=== PATIENT | male | born 1950 | race Caucasian/White ===

== ENCOUNTER → 2017-02-26 | Outpatient (CLI) | payer OTHER ==
[~2017-02-26] MED LIST: ALTACE2.5 M1 PO; ASPRIN; ATORVASTATIN; BUDEPRION XL300 MG PO; CARDI-OMEGA1000 MG PO; CLONAZEPAM1 MG PO; DIABETA2.5 MG PO; EFFEXOR 75M75 MG/TAB PO; GLUCOPHAGE500 MG/TAB PO; GLUCOTROL10 MG PO; ISOSORBIDE30 MG PO; LEVEMIR FLEXPEN SQ; NASACORT55 MCG/ACT NS; NITROSTAT0.4 MG/TAB SL; NORVASC2.5 MG PO; PLAVIX 75MG TAB75 MG PO; PLETAL50 MG PO; PRILOTC; PROSCAR; TOPROL XL50 MG PO; TRILIPIX 135MG PO; VICTOZA6 MG/ML SQ; VIT E
== END ==
LOC: COL.RAD 09:35
DX: G31.9 Degenerative disease of nervous system, unspecified (principal)

== ENCOUNTER 2017-03-21 15:47 | Emergency (ER) | payer MEDICARE ==
[~2017-03-21] VITALS: Ht 180.3 cm; Wt 94.5 kg
[2017-03-21 16:37] VITALS: BP 123/63; PULSE 82
== END 2017-03-21 16:46 | disposition home or self-care (01) ==
LOC: COL.ER 15:47
DX: S61.412A Laceration without foreign body of left hand, initial encounter (principal); I25.10 Atherosclerotic heart disease of native coronary artery without angina pectoris; E11.9 Type 2 diabetes mellitus without complications; Z79.82 Long term (current) use of aspirin; Z79.4 Long term (current) use of insulin; W26.8XXA Contact with other sharp object(s), not elsewhere classified, initial encounter; Y92.009 Unspecified place in unspecified non-institutional (private) residence as the place of occurrence of the external cause

== ENCOUNTER → 2017-11-16 | Outpatient (CLI) | payer MEDICARE | LOC: COL.RAD 13:49 | DX: M47.817 Spondylosis without myelopathy or radiculopathy, lumbosacral region (principal); M51.37 Other intervertebral disc degeneration, lumbosacral region; Z98.890 Other specified postprocedural states ==

== ENCOUNTER → 2018-01-21 | Outpatient (CLI) | payer MEDICARE | LOC: COL.RAD 01-17 13:15 | DX: M47.14 Other spondylosis with myelopathy, thoracic region (principal); M51.04 Intervertebral disc disorders with myelopathy, thoracic region ==

== ENCOUNTER → 2018-02-28 | Outpatient (CLI) | payer MEDICARE | LOC: COL.RAD 07:04 | DX: G31.9 Degenerative disease of nervous system, unspecified (principal); J32.1 Chronic frontal sinusitis; Q28.1 Other malformations of precerebral vessels; E11.9 Type 2 diabetes mellitus without complications; I10 Essential (primary) hypertension; Z95.828 Presence of other vascular implants and grafts | CPT/HCPCS: A9585 ==

== ENCOUNTER → 2018-07-14 | Outpatient (CLI) | payer MEDICARE | LOC: SUN.DIA 10:34 | DX: E11.40 Type 2 diabetes mellitus with diabetic neuropathy, unspecified (principal); Z79.4 Long term (current) use of insulin; E78.5 Hyperlipidemia, unspecified; I10 Essential (primary) hypertension; E66.9 Obesity, unspecified; I73.9 Peripheral vascular disease, unspecified | CPT/HCPCS: G0108 ==

== ENCOUNTER → 2018-08-04 | Outpatient (CLI) | payer MEDICARE | LOC: SUN.DIA 12:18 | DX: E11.9 Type 2 diabetes mellitus without complications (principal); Z79.4 Long term (current) use of insulin; E78.5 Hyperlipidemia, unspecified; I10 Essential (primary) hypertension | CPT/HCPCS: G0108 ==

== ENCOUNTER → 2018-08-15 | Outpatient (CLI) | payer MEDICARE | LOC: SUN.DIA 10:51 | DX: E11.40 Type 2 diabetes mellitus with diabetic neuropathy, unspecified (principal); Z79.4 Long term (current) use of insulin; I10 Essential (primary) hypertension; E78.5 Hyperlipidemia, unspecified; E66.9 Obesity, unspecified | CPT/HCPCS: G0108 ==

== ENCOUNTER → 2018-11-14 | Outpatient (CLI) | payer MEDICARE | LOC: DIA.ED 10:24 → SUN.DIA 15:22 | DX: E11.40 Type 2 diabetes mellitus with diabetic neuropathy, unspecified (principal); E78.5 Hyperlipidemia, unspecified; I10 Essential (primary) hypertension; E66.9 Obesity, unspecified; Z79.4 Long term (current) use of insulin ==

== ENCOUNTER → 2019-02-13 | Outpatient (CLI) | payer MEDICARE ==
[~2019-02-13] MED LIST changes: +ARICEPT ODT10 MG PO; +COZAAR 25MG25 MG/TAB PO; +CYMBALTA 60MG60 MG PO; +HUMALOG100 U/ML SQ; +JARDIANCE10; +MELAT3MGTAB; +NAMENDA 10MG TA10 MG PO; +NEURONTIN300 MG/CAP; +NEURONTIN300 MG/CAP PO; +OMNICEF 300MG300 MG PO; +TOPROL XL 25MG25 MG PO; -TOPROL XL50 MG PO; +TRULICITY0.75 MG/0. SQ
== END ==
LOC: DIA.ED 10:59
DX: E11.40 Type 2 diabetes mellitus with diabetic neuropathy, unspecified (principal); E78.5 Hyperlipidemia, unspecified; I10 Essential (primary) hypertension; Z79.4 Long term (current) use of insulin

== ENCOUNTER 2020-08-14 12:33 | Day surgery (SDC) | payer MEDICARE ==
[~2020-08-14] VITALS: Ht 177.8 cm; Wt 97.2 kg
[2020-08-14] VITALS (7 sets, daily range): BP systolic 123–139; BP diastolic 59–94; PULSE 74–85; TEMP 97.5–98.1
[~2020-08-14 12:33] MED LIST changes: -JARDIANCE10; +JARDIANCE10 PO
[2020-08-14] MEDS ORDERED: ASPIRIN E.C. 8181 MG PO (14:04)
[2020-08-14] MEDS ORDERED: VITAMIN B-6100 MG PO (14:05)
[2020-08-14] MEDS ORDERED: ZYRTEC5 MG PO (14:06)
[2020-08-14] MEDS ORDERED: [UNRECOGNIZED DRUG - REMARK] (14:08)
[2020-08-14] MEDS ORDERED: CYMBALTA 30MG30 MG PO (14:15)
[2020-08-14] MEDS ORDERED: TRICOR 48MG48 MG PO (14:17)
[2020-08-14] MEDS ORDERED: MELATIN 3 MG-11 TAB PO (14:21)
[2020-08-14] MEDS ORDERED: NASACORT OTC NS (14:22)
[2020-08-14] MEDS ORDERED: OZEMPIC1 MG/0.75 SQ (14:23)
[2020-08-14] MEDS ORDERED: B-121000 MCG PO (14:24)
[2020-08-14] MEDS ORDERED: VITAMIN D250 MCG PO (14:25)
--- NOTE | 2020-08-14 17:41 | NUR ---
PT TO FLOOR @ 1605 PER BED WITH REPORT FROM CLARISSA GUAMAN PACU. PT IS A/O X3 LUNGS CTA, VSS, ALL ASSESSMENTS WNL. CBI TO CLEAR DRAINAGE IN BIRD TO DD. PT DENIES PAIN.
--- NOTE | 2020-08-14 21:52 | NUR ---
Patient resting in bed. No complaints of pain. CBI running moderately draining clear pink into dependent drainage bag. SCDs to bilateral extremitites. No other needs at this time. Call light in reach.
--- NOTE | 2020-08-14 22:30 | NUR ---
Patient reports he takes 45 units of levemir every night at home. Blood sugar was checked and it was 212. Hospitalist gave verbal order. Insulin administered.
[2020-08-15] VITALS: BP 120/66; PULSE 82; TEMP 98.3
[2020-08-15 04:35] VITALS: BP 120/73; PULSE 87; TEMP 97.3
--- NOTE | 2020-08-15 05:07 | NUR ---
CBI running slow this morning and draining light pink. No complaints at this time. Call light in reach.
[2020-08-15 08:00] VITALS: BP 122/60; PULSE 80; TEMP 97.5
--- NOTE | 2020-08-15 08:11 | NUR ---
INITIATED 6 BTTL ROUTINE AFTER PRIME AND PULL BIRD CATHETER. 700 MLS PINK URINE REMOVED FROM BIRD PRIOR TO PROCEEDURE. PT TOLERATED WELL. PROCEEDURE PREFOMED BY SHASHA CRUZ STUDENT SUPERVISED BY REPORTING NURSE.
--- NOTE | 2020-08-15 09:25 | NUR ---
Initial visit; Patient thanked Discount Clerk for looking in on him and stated he is doing well and about to be discharged.
[2020-08-15 12:00] VITALS: BP 132/67; PULSE 79; TEMP 98.2
--- NOTE | 2020-08-15 13:12 | NUR ---
SW met with the patient to discuss discharge plan. The patient lives alone in [place]. He states that his daughter, Saskia Roa (ph#[phone]), lives in [place]. He reports independence with ADLs and has a cane and walker. The patient's PCP is Dr. Tiny Mensah and he receives his medications from the [facility]. The patient does not have a DPOA-HC, but he states that he does have one completed and that it designates Saskia. The patient plans to return home upon discharge. No additional needs at this time.
--- NOTE | 2020-08-15 13:28 | NUR ---
DISCHARGE INSTRUCTIONS PROVIDED TO PT. QUESTIONS ANSWERED. STUDENT NURSE BREN REMOVED INT FROM PATIENT'S RFA. PT AND STUDENT TOLERATED WELL.
== END 2020-08-15 13:40 | disposition home or self-care (01) ==
LOC: SDCO 12:33 → SURG 12:33 → SDCO 15:15 → SURG 16:22 → SDCO 08-15 13:40
DX: N40.3 Nodular prostate with lower urinary tract symptoms (principal); N40.1 Benign prostatic hyperplasia with lower urinary tract symptoms; N13.8 Other obstructive and reflux uropathy; J45.909 Unspecified asthma, uncomplicated; I25.10 Atherosclerotic heart disease of native coronary artery without angina pectoris; E11.40 Type 2 diabetes mellitus with diabetic neuropathy, unspecified; E78.00 Pure hypercholesterolemia, unspecified; I10 Essential (primary) hypertension; E78.5 Hyperlipidemia, unspecified; G47.33 Obstructive sleep apnea (adult) (pediatric); G25.81 Restless legs syndrome; Z90.89 Acquired absence of other organs; Z98.52 Vasectomy status; Z79.82 Long term (current) use of aspirin; Z79.899 Other long term (current) drug therapy; Z79.84 Long term (current) use of oral hypoglycemic drugs; Z88.8 Allergy status to other drugs, medicaments and biological substances; Z87.891 Personal history of nicotine dependence; Z80.52 Family history of malignant neoplasm of bladder; Z80.3 Family history of malignant neoplasm of breast
CPT/HCPCS: OP; 99223; J0690; J1100; J1170; J1815; J2405; J2704; J3010; J7030

== ENCOUNTER → 2021-04-17 | Outpatient (CLI) | payer MEDICARE ==
[~2021-04-17] MED LIST changes: +ASPIRIN E.C. 8181 MG PO; +B-121000 MCG PO; +CYMBALTA 30MG30 MG PO; +MELATIN 3 MG-11 TAB PO; +NASACORT OTC NS; +OZEMPIC1 MG/0.75 SQ; +TRICOR 48MG48 MG PO; +VITAMIN B-6100 MG PO; +VITAMIN D250 MCG PO; +ZYRTEC5 MG PO; +[UNRECOGNIZED DRUG - REMARK]
== END ==
LOC: COL.RAD 13:01
DX: M51.17 Intervertebral disc disorders with radiculopathy, lumbosacral region (principal); M48.061 Spinal stenosis, lumbar region without neurogenic claudication; Z98.890 Other specified postprocedural states
CPT/HCPCS: A9575

== ENCOUNTER 2021-12-24 10:48 | Emergency (ER) | payer MEDICARE ==
[~2021-12-24] VITALS: Ht 177.8 cm; Wt 92.7 kg
[2021-12-24 11:12] VITALS: TEMP 98.4
[2021-12-24 11:51] LABS: BASO % 0.4 % (0.0-2.0); EOS # 0.2 K/mm3 (0.0-0.7); EOS % 2.2 % (0.0-4.0); GRAN # 4.6 K/mm3 (1.4-6.5); GRAN % 66.6 % (42.2-75.2); HEMATOCRIT 51.2 % (42.0-52.0); HEMOGLOBIN 17.1 g/dl (13.5-18.0); LYMPH # 0.8 K/mm3 (1.2-3.4); LYMPH % 11.8 % (20.0-51.0); MEAN CELL VOLUME 90 fl (80.0-100.0); MEAN CORPUSCULAR HEMOGLOBIN 30 pg (27-31); MEAN CORPUSCULAR HGB CONC 33 g/dl (33.0-37.0); MEAN PLATELET VOLUME 9.1 fl (7.4-10.4); MONO # 1.2 K/mm3 (0.1-0.6); MONO % 17.8 % (1.7-9.3); PLATELET COUNT 174 K/mm3 (130-400); REDCELL DISTRIBUTION WIDTH-CV 14.2 % (11.5-14.5)
[2021-12-24 12:04] LABS: ACETONE,SERUM NEGATIVE
[2021-12-24 12:34] LABS: ALANINE AMINOTRANSFERASE 63 U/L (0-55); ALBUMIN 3.8 gm/dL (3.4-4.8); ALKALINE PHOSPHATASE 80 U/L (40-150); ANION GAP 14 mmol/L (7-16); AST,SGOT 52 U/L (5-34); BLOOD UREA NITROGEN 15 mg/dL (8-26); CALCIUM 9.8 mg/dL (8.4-10.2); CARBON DIOXIDE 21 mmol/L (23-31); CHLORIDE 102 mmol/L (98-107); CREATININE, serum 1.35 mg/dL (0.72-1.25); GLUCOSE 185 mg/dL (70-99); LIPASE 42 U/L (8-78); POTASSIUM 4.7 mmol/L (3.5-4.5); SODIUM 137 mmol/L (136-145); TOTAL PROTEIN 7.7 gm/dL (6.2-8.1)
[2021-12-24 12:42] LABS: TROPONIN-I < 0.010 ng/mL (0.00-0.033)
[2021-12-24 14:25] VITALS: BP 140/89; PULSE 92
== END 2021-12-24 14:25 | disposition home or self-care (01) ==
LOC: COL.ER 10:48
PROVIDERS: Nurse Practitioner Family
DX: U07.1 COVID-19 (principal); E11.9 Type 2 diabetes mellitus without complications; N17.9 Acute kidney failure, unspecified; E87.5 Hyperkalemia; Z73.0 Burn-out
CPT/HCPCS: J7030

== ENCOUNTER → 2022-10-07 | Outpatient (RCR) | payer MEDICARE | END | disposition home or self-care (01) | LOC: COL.CR | DX: Z48.812 Encounter for surgical aftercare following surgery on the circulatory system (principal); Z95.1 Presence of aortocoronary bypass graft ==

== ENCOUNTER → 2023-06-09 | Outpatient (RCR) | payer MEDICARE ==
[~2023-06-09] MED LIST changes: +CELEBREX 200MG200 MG PO; +LEVEMIR SQ; +LIPITOR 40MG TA40 MG PO; +LOPRESSOR 225 MG/TAB PO; -MELATIN 3 MG-11 TAB PO; +MELATONIN5 M1 PO; +OZEMPIC0.25 MG/02 SQ; -OZEMPIC1 MG/0.75 SQ; +RANEXA 500MG T500 MG PO; +TYLENOL 500MG500 MG PO; -[UNRECOGNIZED DRUG - REMARK]; +[UNRECOGNIZED DRUG - REMARK] TOP
== END | disposition home or self-care (01) ==
LOC: COL.CR
DX: Z48.812 Encounter for surgical aftercare following surgery on the circulatory system (principal); Z98.61 Coronary angioplasty status

== ENCOUNTER 2023-07-07 15:41 | Outpatient (RCR) | payer MEDICARE | END 2023-07-08 | disposition home or self-care (01) | LOC: COL.CR | DX: Z48.812 Encounter for surgical aftercare following surgery on the circulatory system (principal); Z98.61 Coronary angioplasty status ==

== ENCOUNTER 2023-08-27 12:07 | Outpatient (RCR) | payer MEDICARE | END 2023-08-30 12:04 | disposition home or self-care (01) | LOC: COL.CR 12:07 | DX: Z48.812 Encounter for surgical aftercare following surgery on the circulatory system (principal); Z98.61 Coronary angioplasty status ==

== ENCOUNTER 2023-12-21 08:28 | Outpatient (CLI) | payer MEDICARE ==
[~2023-12-21] VITALS: Ht 177.8 cm; Wt 91.9 kg
[~2023-12-21 08:28] MED LIST changes: +ARICEPT10 MG PO; +ASPRUZYO SPRIN500 MG PO; +BASAGLAR K100 UNIT/1 SQ; +IMDUR 30MG30 MG/TAB PO; +LEVEMIR FLEX100 U/ML SQ; +SYNJARDY 12.5-1 EACH PO; +VITAMIN B125000 MCG PO
[2023-12-21 09:00] VITALS: BP 120/71; PULSE 75; TEMP 97.5
--- NOTE | 2023-12-21 09:50 | NUR ---
Pt to procedure.Report to DENIZ Crisostomo.
--- NOTE | 2023-12-21 10:49 | NUR ---
Pt returned from procedure.Report from DENIZ Crisostomo>
[2023-12-21 10:50] VITALS: BP 125/74; PULSE 77
--- NOTE | 2023-12-21 11:10 | NUR ---
Discharge instructions given to pt.Pt verbalizes understanding.Pt escorted out via wheelchair by this nurse.
== END 2023-12-21 12:07 ==
LOC: COL.CAR 08:28
DX: R42 Dizziness and giddiness (principal); R55 Syncope and collapse